=== PATIENT | male | born 1955 | race Hispanic/Latino ===

== ENCOUNTER 2016-10-04 03:05 | Emergency (ER) | payer OTHER ==
[2016-10-04] MEDS ORDERED: Rocuronium 10 mg/mL 5 mL Inj ONE (03:10)
[2016-10-04] MEDS ORDERED: EPINEPHrine 10,000 mCg/250 mL NS IV SCH ×2 (03:15)
[2016-10-04 03:31] LABS: Mean Corpuscular Hemoglobin 28.5 pg (27.0-35.0); Mean Corpuscular Volume 88.1 fL (81-100); Platelet Count 274 bil/L (150-400)
[2016-10-04 03:49] LABS: TROPONIN T 0.021 ug/L (0.0-0.011)
--- NOTE | 2016-10-04 03:50 | ABG ---
DateTimeAnalyzed 03:42:04 -_ pH ____7.058 - 7.350 7.450 pCO2 ___69.7__ -mmHg 35.0 45.0 pO2 ___89.6__ -mmHg 69.0 116 HCO3- ___19.6__ -mmol/L 22.0 26.0 ABE __-10.7__ -mmol/L tHb ___14.6__ -g/dL O2Hb ___89.7__ -% COHb ____3.5__ -% 1.5 MetHb ____0.0__ -% sO2 ___93.1__ -% FIO2 ___21.0__ -% PEEP ____5.0__ -cmH2O Set_RR 24 -b/min Drawn By MD - Date/Time Notified____ 03:49:00 -_ Spontaneous_RR 24 -b/min Oxygen Device 1 VENTILATOR - Notified By MD - Notified Whom DR BROWN - K+ ____3.2__ -mmol/L tO2 ___18.6__ -Vol% OrderingPhysicianInitials CR - Oliver test N/A -
[2016-10-04 03:55] VITALS: BP 81/62; PULSE 117; RESP 24
--- NOTE | 2016-10-04 04:00 | ED.REPORT ---
HPI-General Illness Date of Service Oct 04, 2016 ED Provider: Mikey Sun MD Pt is a 61 year old male presenting to the ED via EMS CPR in progress. Medics report that the pt was at work cleaning with bleach and his co-workers did not see him for about 10 minutes then found him unresponsive. He had a fast but weak pulse so they performed CPR for 5-10 minutes before medics arrived. He received 3 rounds of epi en route after he arrested twice and had CPR with spontaneous return of pulse. Medics report multiple BPs in the 140-150s systolic. He arrives to the ED intubated with a Nayan tube. Family reports he is generally well. He had an episode of dizziness and a brief headache on Monday that resolved spontaneously. He has had some cold symptoms recently and has taken some [id number]-[id number] decongestants. He has no known allergies. He takes no meds on a daily basis otherwise. Nursing Notes Stated Complaint: STEMI Chief Complaint: Critical Care/Intubated Nursing Notes Reviewed: Yes General Time Seen by MD: 03:11 Chief Complaint Other (CPR in progress) Hx Obtained From: EMS Arrived By: Ambulance Sudden in Onset?: Yes Onset Occurred: Just prior to arrival Symptom Duration: Since onset Recent Healthcare: No recent doctor visit, No recent hospitalization Similar Sx Previous: No Past Medical History Past Medical History healthy Past Surgical History unknown Smoking History Unknown if Ever Smoker Ambulatory Status Independent Review of Systems Unable to Obtain ROS Patient condition, Intubated Physical Exam Vital Signs HR: 119 BP: 102/68 Resp Rate: 22 O2 SATs: 78 Initial VS: Reviewed General/Constitutional: Well-developed, Well-nourished Head / Eyes: Atraumatic Neck: Supple Abdomen / GI: No distention Extremities: Vascular intact, Neuro intact, No swelling Skin: Warm, Dry, No cyanosis ENT: Atraumatic Intubated Respiratory / Chest: No chest wall deformity Intubated Upper Extremities Upper Extremity / MS: No deformity, Neurologic intact, Vascular intact NEUROLOGIC: Unresponsive. Intubated. Interpretation & Diagnostics Interpretation & Diagnostics: Arterial Blood Gas: pH: 7.058 pCO2: 70 pO2: 89.6 cHCO3: 19.6 cBase: -10.7 Repeat Arterial Blood Gas: pH: 7.232 pCO2: 44 pO2: 70.4 cHCO3: 17.7 cBase: -9.3 Lab Results Interpretation Result Diagram: 10/04/16 0315 10/04/16 0315 Test 10/04/16 03:05 10/04/16 03:15 Hold Matthews Top Tube Received (Received) White Blood Count 18.4th/mm3 (3.8-10.1) Red Blood Count 5.13mil/mm3 (4.40-5.80) Hemoglobin 14.6g/dL (13.8-17.2) Hematocrit 45.2% (41.0-50.0) Mean Corpuscular Volume 88.1fL (81-100) Mean Corpuscular Hemoglobin 28.5pg (27.0-35.0) Mean Corpuscular Hemoglobin Concent 32.3% (32.0-37.0) Red Cell Distribution Width 14.1% (12.3-15.4) Platelet Count 274bil/L (150-400) Neutrophils (%) (Auto) 42% (40-74) Lymphocytes (%) (Auto) 36% (14-46) Monocytes (%) (Auto) 3% (4-12) Eosinophils (%) (Auto) 12% (0-5) Basophils (%) (Auto) 0% (0-3) Band Neutrophils % 7% (1-5) Hematology Comments Wbc Sodium Level 138mEq/L (134-144) Potassium Level 4.3mEq/L (3.5-5.2) Chloride Level 100mEq/L (97-108) Carbon Dioxide Level 15mmol/L (18-29) Blood Urea Nitrogen 17mg/dL (6-24) Creatinine 1.43mg/dL (0.76-1.27) Estimat Glomerular Filtration Rate 54mL/min (>59) Glucose Level 328mg/dL (60-99) Calcium Level 8.5mg/dL (8.5-10.1) Magnesium Level 2.7mg/dL (1.6-2.6) Total Bilirubin 0.2mg/dL (0.0-1.2) Aspartate Amino Transf (AST/SGOT) 70U/L (0-50) Alanine Aminotransferase (ALT/SGPT) 55U/L (0-44) Alkaline Phosphatase 109U/L (25-160) Troponin T 0.021ug/L (0.0-0.011) Total Protein 6.8g/dL (6.4-8.4) Albumin 3.7g/dL (3.4-5.0) ECG Interpretation ECG Interpretation: Sinus tachycardia with a rate of 131. Probable left ventricular hypertrophy. ST elevation, consider anterior injury. Time: 03:06 Interpreted by: ED physician ECG Interpretation: Sinus tachycardia with a rate of 104. Nonspecific T abnormalities, lateral leads. ST elevation, consider anterior injury. Prolonged QT interval. Time: 04:00 Interpreted by: ED physician X-Ray Chest Interpretation Chest Xray Interpretation: Pulmonary edema View: Portable, 1 view Interpretation / Wet Read by: Wet read ED physician CT Head Interpretation CONCLUSION: Cerebral low attenuation throughout the left MCA distribution, concerning for acute ischemia. Moderate bilateral subarachnoid blood, greatest in the basal cisterns on the left. Aneurysm rupture is possible. These findings were discussed with Dr. Sun at 10/04/2016 4:42:58 AM PDT. Study: Head CT no contrast Interpretation / Wet Read by: Interpret - Radiologist, Discussed w radiologist Procedures Intubation Time: 03:23 Procedure Performed by: ED physician Consent / Setup / Site Prep: No consent - emergent, Time-out performed, Oxygen administered, Pulse oximeter applied, middle school science teacher applied, Hand hygiene observed, Stand sterile technique Patient Position: Neutral position ET Confirmation: Direct visualization, BS equal, End tidal CO2 device, CXR, Rising O2 sat Secured / Marked: Tube marked at teeth Complications: None Post-Procedure: Condition improved, Tolerated procedure well, Patient stable Re-Eval/Medical Decision Med Decision/Clinical Course 61-year-old in good health generally, presents down with bradycardic hypotension, and received CPR at the scene for about ten minutes. On keyliner arrival, he was found to be in a asystole to bradycardic PEA, but was responsive to epinephrine. He was intubated with a Nayan tube in brought here after three rounds of epinephrine with good palpable pulse. He had a Fenton score of three was completely unresponsive. His Nayan tube was traded for 7.5 Albanian ET tube with position confirmed on x-ray and auscultation and end-tidal CO2. EKG shows some elevations in V1 and V2 and some elevations laterally that were not criterion for STEMI but concerning. This was presented to cardiology and the cath team was summoned after his review of the EKG. Concern remained that some other process might be going on particularly pulmonary embolus. Although he had no specific risk factors, his progression without V. fib and without requiring fibrillation could have been consistent with pulmonary embolus cath team arrived and he was prepared for transport to cath and on discussion with cardiology, we decided to take him first to CT for CT angiogram of the chest. Preparatory to going to [employer], and in view of the concern for pulmonary embolus, a bolus of 5000 units of heparin was given, as well as an aspirin suppository. As it was determined to get a CT before proceeding to [employer] [employer], the head was also scanned. There it was seen immediately that he had a substantial subarachnoid hemorrhage with small amount of blood in the ventricles. At that point, he was returned to the emergency department and arrangements made to transfer to [facility]. He was given 25 mg of protamine sulfate to reverse the heparin. His blood pressure has been difficult to measure reliably but manual measurements of confirmed significant hypertension in the 240/120 range. A nicardipine drip was started, and he was provided with propofol both in an effort to reduce his blood pressure. Lab does confirm an elevation of his troponin probably incidental to his bradycardic hypotensive episode and CPR. Repeat EKG is essentially unchanged or perhaps a little better. Neuro status remains unresponsive with occasional jaw thrust and tongue movement. Time of Eval: 03:05 Patient Status: Condition improved Re-Evaluation/Progress Note: HR: 119 BP: 102/68 Resp Rate: 22 O2 SATs: 78 Time of Eval: 03:14 Re-Evaluation/Progress Note: Performed intubation. Pt SATs falling, removed tube. Attempted re-intubation. Unsuccessful. Time of Eval: 03:23 Patient Status: Condition improved Re-Evaluation/Progress Note: Performed successful intubation. SATS: 100. HR: 113 Resp Rate: 15 BP: 74/49 Time of Eval: 03:28 Patient Status: Condition improved Re-Evaluation/Progress Note: Started CPR. Time of Eval: 03:42 Re-Evaluation/Progress Note: HR: 146 Resp Rate: 24 SATs: 95 BP: 224/146 Time of Eval: 03:53 Re-Evaluation/Progress Note: Spoke to the pt's family. Time of Eval: 04:06 Re-Evaluation/Progress Note: HR: 106 Resp Rate: 24 O2: 100 BP: 191/121 Time of Eval: 04:47 Re-Evaluation/Progress Note: Discussed CT results and plan to transfer the pt to [facility] with the pt's family. They understand and agree with plan. Time of Eval: 04:58 Patient Status: Condition improved Re-Evaluation/Progress Note: Pt stable. HR: 128 BP: 17/126 O2: 98 Consultation #1: Referral / Consult Name: Roberto Francis MD Consulted With: Cardiology Call Returned at: 03:34 Professor Of Art History: Requested [employer] Consultation #2: Referral / Consult Name: Roberto Francis MD Consulted With: Cardiology Call Returned at: 04:12 Note: Consultation with Dr. Francis in the room. Pt will get a CT angio chest PE and CT head on his way to the [facility]. Consultation #3: Consulted With: Neurosurgery Call Returned at: 04:59 Note: [facility]. Dr. Sales accepts the transfer. Propofol may help lower blood pressure. Counseled Regarding: Diagnosis, Lab results, Need for transfer Discharge & Departure Primary Impression: Cardiac arrest Additional Impressions: Aneurysm Subarachnoid hemorrhage due to ruptured aneurysm Respiratory arrest Hypertension Disposition: Transfer, Acute Care Facility ([facility]) Discharge Condition All VS Reviewed: Yes Condition: Critical Referrals: NOPCP (PCP) Crit Care Except Billable Proc Time Spent: 75-104 minutes (seventy-five minutes) Services Performed: Patient management by me, Time spent at bedside, Reviewing test results, Reviewing imaging, Discussing patient care, Documentation in record, Time with fam/surrogate Scribe Attestation Portions of this note were transcribed by Chery Maria. I, Dr. Sun personally performed the history, physical exam and medical decision-making; I reviewed and confirmed the accuracy of the information in the transcribed note. Signed by: Wesley Bridges, 10/04/2016 at 0530. Mikey Sun MD Oct 04, 2016 04:00 CHERY MARIA Oct 04, 2016 04:03
[2016-10-04 04:01] LABS: Magnesium 2.7 mg/dL (1.6-2.6)
[2016-10-04 04:13] VITALS: O2SAT 100
[2016-10-04] MEDS ORDERED: Heparin 1,000 Units/500 mL NS 1,000 UNIT in IV Premix 1 EACH IV ONE (04:33)
[2016-10-04] MEDS ORDERED: Heparin 10,000 Unit/1,000mL NS 10,000 UNIT in IV Premix 1 EACH IV ONE (04:34)
[2016-10-04] MEDS ORDERED: Dextrose 5% 250 ML IV ONE (04:34)
[2016-10-04] MEDS ORDERED: NitroPRUSSIDE 25,000 mCg/mL 2 mL Inj IV ONE (04:34)
[2016-10-04] MEDS ORDERED: Nitroglycerin 50 mg/250 mL D5W 50,000 MCG in IV Premix 1 EACH IV ONE (04:34)
[2016-10-04 04:47] LABS: BASOPHILS % (AUTO) 0 % (0-3); EOSINOPHILS % (AUTO) 12 % (0-5); MONOCYTES % (AUTO) 3 % (4-12); NEUTROPHILS % (AUTO) 42 % (40-74)
[2016-10-04] MEDS ORDERED: Propofol Inj 1,000,000 MCG in IV Premix 1 EACH IV SCH (05:10)
[2016-10-04] MEDS ORDERED: Propofol 10 mg/mL 20 mL Inj IVPUSH ONE (05:10)
[2016-10-04] MEDS ORDERED: NiCARdipine Inj 25 MG in Dextrose 5% 240 ML IV SCH (05:10)
--- NOTE | 2016-10-04 05:11 | ABG ---
DateTimeAnalyzed 05:05:00 -_ pH ____7.232 - 7.350 7.450 pCO2 ___43.7__ -mmHg 35.0 45.0 pO2 ___70.4__ -mmHg 69.0 116 HCO3- ___17.7__ -mmol/L 22.0 26.0 ABE ___-9.3__ -mmol/L -2.0 2.0 tHb ___15.0__ -g/dL O2Hb ___88.2__ -% COHb ____1.4__ -% MetHb ____1.0__ -% sO2 ___90.4__ -% 25.0 FIO2 __100.0__ -% PEEP ____5.0__ -cmH2O Set_RR ___24.0__ -b/min Vt __550.0__ -L Drawn By LT - Date/Time Notified____ 05:10:00 -_ Notified By LT - Notified Whom DR BROWN - B 758 -mmHg tO2 ___18.6__ -Vol% OrderingPhysicianInitials CR - Oliver test _Positive -
[2016-10-04 05:45] LABS: APPEARANCE,URINE TURBID (CLEAR,HAZY); COLOR,URINE STRAW (YELLOW)
[2016-10-04 05:46] LABS: OCCULT BLOOD,URINE MODERATE (NEGATIVE); UROBILINOGEN,URINE NORMAL (NORMAL)
[2016-10-04 06:09] VITALS: BP 135/94; PULSE 96; RESP 18; O2SAT 95
--- NOTE | 2016-10-04 07:50 | DRSVH ---
PROCEDURE: CT BRAIN WITHOUT CONTRAST ([id number]) INDICATIONS: POST CARDIAC ARREST TECHNIQUE: Noncontrast 4.5 mm thick angled axial sections acquired from the foramen magnum to the vertex, with c oronal reformats. COMPARISON: None. FINDINGS: Image quality: Good The brain: There is decreased attenuation in the left posterior frontal, left temporal and parietal l obes. The appearance would be consistent with ischemic infarct. There is abnormal density in the subarachnoid space somewhat greater on the left than on the right an d surrounding the [place] and extending into the subarachnoid space in the posterior fossa. In addition there are small fluid fluid levels in the posterior aspect of the lateral ventricles and probably in the fourth ventricle. The source of blood is not apparent it would seem more likely to be aneurysmal bleed involving the left middle cerebral artery than with parenchymal bleed with this dis tribution of blood. Skull and face: Calvarium and visualized facial bones are intact, without suspicious lesions. Sinuses: There is moderate mucosal thickening in the right maxillary sinus and mild to moderate scat tered mucosal thickening of ethmoid sinuses IMPRESSION: 1. Prominent subarachnoid bleed slightly greater on the left than the right and probably centered in the region of the [place] and more towards the left side than the right. There is intraventricular blood in the dependent portion of the lateral ventricles and fourth ventric le. Hydrocephalus is not apparent at this time. 2. Decreased attenuation in left middle cerebral artery distribution suggesting vessel occlusion or s pasm causing ischemic change. Dictated by: Aric Negron M.D. on 10/04/2016 at 7:41 this report corresponds to the findings of e preliminary NSR report. Approved by: Aric Negron M.D. on 10/04/2016 at 7:48
--- NOTE | 2016-10-04 07:54 | CONS ---
[address] [address] CONSULTATION REPORT PATIENT: ALIYAH MALIN : 1955 MR#: [id number] ADMIT: 10/04/2016 JOB ID: [id number] CARDIOLOGY CONSULTATION NOTE--INITIAL CRITICAL CARE EVALUATION (EMERGENCY DEPARTMENT): DATE OF SERVICE: Tuesday, October 04, 2016 CONSULTING PHYSICIAN: Cardiology--Tito Reddy M.D. PROBLEMS: Cardiac Arrest: a. Presenting in the field with a bradycardic cardiac arrest; PEA arrest; and requiring CPR. b. Critically Ill--Hypotensive requiring epinephrine; and ventilated; and unresponsive. c. Abnormal ECG--ST-Elevation noted. CORONARY ARTERY DISEASE RISK FACTORS: 1. No history of diabetes. 2. No history of hypertension. 3. No history of hypercholesterolemia. 4. No family history of premature coronary disease. 5. Chronic cigarette use--current smoker. CHIEF COMPLAINT: Insect Control Aide called for STEMI activation. Cardiac arrest; and ongoing critically ill. HISTORY OF PRESENT ILLNESS: I came emergently to the Emergency Department(ED) after called about this man who presented by EMS with a cardiac arrest at work; and who has atypical, but abnormal ECG with ST elevation. 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 He was at work this evening he was found collapsed. He was found to have bradycardia; and I understand possibly asystole; and he required about 10 minutes of CPR in the field and on arrival to the hospital ED. He had pulseless electrical activity. He did not have ventricular fibrillation; nor defibrillation required. In the ED he remains critically ill, unresponsive, breathing on his own, but requiring a ventilator. He has been severely hypotensive requiring epinephrine. Blood pressures have been labile from low to high. The family tells me he is generally healthy without any known medical problems. He has no doctor. I understand from a hospital administrative support clerk that at work he may have been tested and noted to have hypertension and hypercholesterolemia. On reviewing his cardiac history with the family, he has no effort limitation, or effort-related symptoms. He has no chest discomfort. He has no symptoms of congestion such as dyspnea, nocturnal dyspnea, or edema. He has no history of arrhythmia and they were not aware of any symptoms of arrhythmia such as tachy palpitation, presyncope, or syncope. The notes that he did complain of "lightheadedness" during coughing while [place] the airport recently. His only recent health related complaint has been a cough. Regarding other possible underlying vascular disease there is no history of CVA, or current symptoms of TIA. No headache was reported. No claudication. Regarding possible dual antiplatelet therapy, the family reports no bleeding symptoms; and no anticipated upcoming surgery. ALLERGIES: No known drug allergies. I elicit no history of allergy to medical contrast, seafood, fish, iodine, or shellfish. MEDICATIONS: He takes no regular medications. He has been taking some "decongestant" for his recent cough--apparently not large doses; apparently dextromethorphan "DM." PAST MEDICAL HISTORY: Family reports no known medical illnesses. He had a traumatic heel injury in the past. REVIEW OF SYSTEMS: I questioned the family in the emergent setting regarding a 13-point review of systems which is unremarkable, noncontributory, or negative, except as noted including: No history of thyroid disorder. No history of lung disorder including chronic dyspnea, asthma, wheezing, or known sequelae of smoking such as emphysema or COPD. No history of GI disorder including indigestion, ulcer, hepatitis, jaundice. SOCIAL HISTORY: Cigarettes--one pack a day for 43 years since 18 years old smoking noted. No report of known emphysema or other sequelae such as exertional dyspnea. Alcohol--The family reports only rare alcohol use with an "occasional beer." They report he uses no other drugs. FAMILY HISTORY: Not otherwise contributory. PHYSICAL EXAMINATION: General appearance: A middle-aged man unresponsive on the ventilator. Vital signs: Blood pressure 200/100 with heart rate 110 regular in sinus rhythm on telemetry. Respiratory rate on ventilator and O2 saturation intact on supplemental oxygen. Neurologic and mental status: Unresponsive and no focal neurologic defect noted. HEENT: Right pupil mid range. Mouth and mucous membranes noted intubated. Conjunctivae pink. Sclerae not icteric. Neck: Carotid upstroke intact bilaterally without bruit. Jugular venous pressure unremarkable examined supine. No palpable thyromegaly. No palpable cervical lymphadenopathy. LUNGS: Clear to auscultation bilaterally. CARDIAC: Examination notable for regular rhythm, S4 gallop, and no loud murmur heard. ABDOMEN: Obese, but otherwise unremarkable without mass or hepatosplenomegaly. EXTREMITIES: No edema. Pedal pulses difficult to feel. DIAGNOSTIC STUDIES: ECG: I reviewed the initial ECG, and a follow-up ECG that show sinus tachycardia at 125 BPM. ECG is atypical and nondiagnostic for STEMI: But there is subtle--less than 1 mm--ST-elevation in lead aVL and there is ST depression that could be reciprocal depression inferiorly in leads II, III, and F. There is ST straightening in precordial leads. Overall impression is ECG highly atypical for STEMI, but STEMI not excluded. CXR: The chest x-ray may be consistent with pulmonary edema. LABORATORY: Hematology pending. Chemistries include potassium 4.3, BUN 17, creatinine 1.43. Glucose 328. Magnesium 2.7. AST elevated 70, ALT elevated 55. Initial troponin elevated at 0.021. ASSESSMENT: I discussed the findings, impressions, and management considerations with the patient's and Son as well as with the ED staff, Dr. Sun, includin. Cardiac arrest with atypical ECG raising question of STEMI: Overall impression is that this is an atypical scenario in which primarily cardiac etiology seems not likely--but not excluded. The ECG does have ST elevation and possible confirmatory reciprocal ST depression. Our initial consideration includes emergent cardiac catheterization for definitive diagnosis of possible underlying coronary disease and to guide management options including medical therapy, PCI, or bypass surgery. Clinically we also considered pulmonary embolism; and we elected to proceed to emergent CT PE angiogram prior to catheterization. The CT scan including head CT is said to show CUSTOMER SERVICE OFFICER bleed. Given these findings, we deferred cardiac catheterization. RECOMMENDATION: 1. Regarding the primary cardiology question now--Defer cardiac catheterization now. 2. Critical care support per your plan noting critical prognosis. 3. Echocardiogram. 4. Consider ECG changes may be secondary to CUSTOMER SERVICE OFFICER bleed. 5. Cardac Follow-up including AIMEE Protocol with serial ECG; and serial TN/ CK Total/CK MB.. 6. Please reconsult Cardiology for further follow-up consultation--Possible ongoing cardiac issues may include Stress Cardiomyopathy; or underlying CAD exacerbated by his current hemodynamic collapse; and to consider work up for CAD prior to DC. [facility]
--- NOTE | 2016-10-04 09:39 | DRSVH ---
PROCEDURE: X-RAY CHEST ONE VIEW, PORTABLE ([id number]) INDICATIONS: arrest, POST INTUBATION AND NG TUBE TECHNIQUE: One view of the chest was acquired. COMPARISON: None. FINDINGS: Surgical changes and devices: Endotracheal and nasogastric tube positioning normal, but the nasogastr ic tube tip extends below the imaging margin at least into the gastric body. Lungs and pleura: No pleural effusions or pneumothorax. Lungs are mildly edematous, and there may b e aspiration or pneumonia the left lung base behind the heart, given the density in that area. Mediastinum: Mediastinal contours appear normal. Heart size is normal. Bones and chest wall: No suspicious bony lesions. Overlying soft tissues appear unremarkable. IMPRESSION: Tubes in normal position, reduced inspiration, suspect aspiration or left lower lobe pneu monia. Limited study on backboard with reduced inspiration but no definite trauma or pneumothorax is found. Dictated by: Adam Jason M.D. on 10/04/2016 at 9:36 Approved by: Adam Jason M.D. on 10/04/2016 at 9:37
== END 2016-10-04 06:11 | disposition short-term general hospital (02) ==
LOC: EDBD 03:05 → MERGE 03:09 → SED 03:09 → UNDOADMIN 03:50 → CCU 03:50 → SED 06:11
DX: I46.9 Cardiac arrest, cause unspecified (principal); I72.9 Aneurysm of unspecified site; I60.8 Other nontraumatic subarachnoid hemorrhage; W19.XXXA Unspecified fall, initial encounter; R09.2 Respiratory arrest; I10 Essential (primary) hypertension; Y93.89 Activity, other specified; Y92.69 Other specified industrial and construction area as the place of occurrence of the external cause; Y99.0 Civilian activity done for income or pay
CPT/HCPCS: 31500; 36415; 36620; 70450; 71010; 80053; 81000; 82375; 82803; 83735; 84484; 85025; 87086; 93005; 94002; 94799; 99291; 99292; J1644